=== PATIENT | female | born 1945 | race Caucasian/White ===

== ENCOUNTER 2016-07-08 09:24 | Inpatient (IN) | payer OTHER ==
[~2016-07-08] VITALS: Ht 160 cm; Wt 83.9 kg
[2016-07-08 09:24] VITALS: BP 127/70; PULSE 73; RESP 19; TEMP 97; O2SAT 94
--- NOTE | 2016-07-08 09:24 | NUR ---
BROUGHT BACK TO BED #6 AND TRIAGED. REPORT GIVEN TO DEMI
--- NOTE | 2016-07-08 09:50 | NUR ---
Assumed care of patient, introduced self.
[2016-07-08 10:20] LABS: BASOPHILS # (AUTO) 0.2 K/uL (0.0-0.2); BASOPHILS % (AUTO) 1.3 % (0.0-2.0); EOSINOPHILS % (AUTO) 0.1 % (0.0-4.0); HEMATOCRIT 35.3 % (36-48); LYMPHOCYTES # (AUTO) 0.8 K/uL (1.0-5.5); MEAN CORPUSCULAR HEMOGLOBIN 33 pg (27-31); MEAN CORPUSCULAR HGB CONC 34 % (32-36); MEAN CORPUSCULAR VOLUME 97 fL (79.0-98.0); MONOCYTES # (AUTO) 0.6 K/uL (0.0-1.0); MONOCYTES % (AUTO) 4.2 % (1.7-9.3); NEUTROPHILS # (AUTO) 12.1 K/uL (1.8-7.7); NEUTROPHILS % (AUTO) 88.4 % (40.0-70.0); PLATELET COUNT (AUTO) 301 K/uL (130-430); RED BLOOD CELL COUNT(AUTO) 3.63 MIL/uL (4.2-6.2); RED CELL DISTRIBUTION WIDTH 17.2 % (9.0-15.0); WHITE BLOOD COUNT (AUTO) 13.7 K/uL (4.8-10.8)
[2016-07-08 10:23] LABS: CALCIUM 9.3 mg/dL (8.4-11.0); CREATININE 1.3 mg/dL (0.55-1.30); POTASSIUM 5.1 mmol/L (3.5-5.1)
[2016-07-08 10:25] LABS: INR 1.1 (0.8-1.2); PROTHROMBIN TIME 11.7 SECS (9.5-12.5)
[2016-07-08 10:27] LABS: ALBUMIN 2.7 g/dL (3.4-4.8); TOTAL BILIRUBIN 1.2 mg/dL (0.0-1.0); TOTAL PROTEIN, SERUM 6.9 g/dL (6.4-8.3)
[2016-07-08] MEDS ORDERED: LEVOFLOXACIN 500 MG/D5W 100 ML IV ONE (11:00)
[2016-07-08] MEDS ORDERED: METH2.5T PO (11:33)
[2016-07-08] MEDS ORDERED: FOLI-43 PO (11:33)
[2016-07-08] MEDS ORDERED: SIMV10TA2 PO (11:33)
--- NOTE | 2016-07-08 11:33 | NUR ---
Medication reconciliation partially completed without accurate doses. As patient remembers names only. Family advised that we will need doses and will bring in meds.
--- NOTE | 2016-07-08 12:05 | NUR ---
Admission Note Received patient from ER with diagnosis of right pleural effusion. Initial Plan of Care discussed-patient verbalized understanding. Family at bedside. Oriented to room, call light, pain management and safety.
--- NOTE | 2016-07-08 12:13 | NUR ---
Patient will be admitted to care of MARCO ANTONIO. Admitted to unit. Will go to room . Belongings list completed. Summary report printed. Report given to .
--- NOTE | 2016-07-08 12:25 | NUR ---
Received patient, stable condition, alert and oriented x4. Visitor present. No shortness of breath noted, breathing unlabored. No complaints per patient. Fall, safety and aspiration precautions in place, bed in lowest position, call light with patient-education and teach back done. Will continue to monitor.
[2016-07-08 12:30] VITALS: BP 96/63; PULSE 104; RESP 20; TEMP 98.8; O2SAT 97
[2016-07-08] MEDS ORDERED: FURO-150 PO (12:30)
--- NOTE | 2016-07-08 13:10 | NUR ---
CONSULT PULMONOLOGY DR LERMA [phone] S/W YOLI EXCHANGE @ [id number]
[2016-07-08] MEDS ORDERED: ALBUTEROL SULFATE 0.083% 2.5 MG/3 ML VIAL.NEB INH PRN (13:30)
[2016-07-08] MEDS ORDERED: IPRATROPIUM BROM 0.5 MG/2.5 ML VIAL.NEB (ATROVENT) INH PRN (13:30)
--- NOTE | 2016-07-08 14:05 | NUR ---
Lactic Acid: Lab called, stated attempted to draw lactic acid but was unsuccessful. Stated new tech will come to attempt when patient is done with thoracentesis.
--- NOTE | 2016-07-08 14:20 | NUR ---
Thoracentesis: Complete. Patient tolerated well. 1L removed per tech.
--- NOTE | 2016-07-08 14:30 | NUR ---
Called Lab: To inform that patient is done with procedure, stated will draw soon.
[2016-07-08 16:00] VITALS: BP 109/52; PULSE 73; RESP 18; TEMP 98.5; O2SAT 95
[2016-07-08] MEDS: IPRATROPIUM BROM 0.5 MG/2.5 ML VIAL.NEB (ATROVENT) INH SCH ×3 (16:09→23:00)
[2016-07-08] MEDS: ALBUTEROL SULFATE 0.083% 2.5 MG/3 ML VIAL.NEB INH SCH ×3 (16:09→23:00)
[2016-07-08 16:41] VITALS: BP 96/63; PULSE 104
--- NOTE | 2016-07-08 16:41 | NUR ---
Note: Patient in stable condition, no distress noted.
--- NOTE | 2016-07-08 16:44 | NUR ---
CT Results: Dr. Garcia paged regarding CT results + to ask if would like cytology for thoracentesis fluid.
[2016-07-08 16:58] LABS: APPEARANCE,SPUN,BODY FLUID CLEAR (CLEAR); BF APPEARANCE UNSPUN SLIGHTLY HAZY (CLEAR); BODY FLUID SOURCE/ TYPE PLEURAL; SOURCE/TYPE ,BODY FLUID THORACENTESIS
[2016-07-08 16:59] LABS: BODY FLUID COLOR DARK YELLOW (LT YELLOW); BODY FLUID TOTAL VOLUME 1050 mL
--- NOTE | 2016-07-08 17:22 | NUR ---
MD call again: Paged Dr. Garcia again. Waiting for call back,
--- NOTE | 2016-07-08 17:25 | NUR ---
Dr. Garcia: Returned call, aware of CT results. Order received for cytology of pleural fluid.
--- NOTE | 2016-07-08 19:00 | NUR ---
Closing Note: Patient in stable condition, no distress noted. Thoracentesis site with band aid to right side of back clean dry intact. Care endorsed to night RN.
[2016-07-08 19:09] LABS: WBC, BODY FLUID 113 /uL
[2016-07-08 19:10] LABS: EOSINOPHIL, BODY FLUID 1 %; LYMPHOCYTES, BODY FLUID 20 %; MONOCYTES,BODY FLUID 57 %; NEUTROPHIL, BODY FLUID 22 %; RBC, BODY FLUID 1083 /uL
[2016-07-08 19:40] VITALS: BP 105/64; PULSE 109; RESP 15; TEMP 99.4; O2SAT 97
--- NOTE | 2016-07-08 19:50 | NUR ---
initial nursing notes: Patient is awake. Patient has edema on the LUE. Patient has a band-aid on the right side of her back from thoracentesis during the afternoon. Patient has an IV access on the RUE.
--- NOTE | 2016-07-08 21:50 | NUR ---
nursing rounds: Patient calmly resting in bed, watching television.
[2016-07-08 22:01] LABS: BODY FLUID GLUCOSE 109 mg/dL
--- NOTE | 2016-07-08 23:50 | NUR ---
nursing rounds: Patient asleep in bed. Call light within patient's reach.
[2016-07-09 00:44] VITALS: BP 106/54; PULSE 99; RESP 18; TEMP 97.8; O2SAT 93
--- NOTE | 2016-07-09 01:50 | NUR ---
nursing rounds: Patient sleeping in bed. Patient has no shortness of breath.
[2016-07-09] MEDS: ALBUTEROL SULFATE 0.083% 2.5 MG/3 ML VIAL.NEB INH SCH ×3 (03:00→14:26)
[2016-07-09] MEDS: IPRATROPIUM BROM 0.5 MG/2.5 ML VIAL.NEB (ATROVENT) INH SCH ×3 (03:00→14:27)
--- NOTE | 2016-07-09 03:50 | NUR ---
nursing rounds: Patient asleep in bed. Kept bed alarm on as preventive measures to avoid falls/injuries.
[2016-07-09 04:00] VITALS: BP 102/66; PULSE 95; RESP 17; TEMP 98.8; O2SAT 97
--- NOTE | 2016-07-09 04:00 | NUR ---
CONSULT: CONSULT CALLED FOR DR. LERMA I SPOKE WITH JOSÉ LUIS DANIEL REASON FOR CONSULT: PLEURAL EFFUSION NUMBER I CALLED [phone]
--- NOTE | 2016-07-09 04:33 | NUR ---
CONSULT: CONSULT CALLED FOR DR. MOSER I SPOKE WITH FRANKIE EXCHANGE NUMBER I CALLED [phone]
--- NOTE | 2016-07-09 05:50 | NUR ---
nursing rounds: Patient calmly resting in bed. Patient denies of having pain.
--- NOTE | 2016-07-09 07:49 | NUR ---
closing nursing notes: Patient is awake, alert and oriented X 4. Patient is in no acute respiratory distress. 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 Provided nursing report to incoming morning shift nurse, SHAYY Coelho, at patient's bedside.
[2016-07-09] MEDS ORDERED: LEVOFLOXACIN 500 MG/D5W 100 ML IV SCH (08:00)
[2016-07-09 08:15] VITALS: BP 111/58; PULSE 105; RESP 17; TEMP 96.4; O2SAT 98
--- NOTE | 2016-07-09 09:09 | NUR ---
Nutrition Update Kaiden Scale 16 noted. Pt admitted for pleural effusion. Diet: 2 gm Na BMI: 32.8 kg/m2 RD to follow per nutrition care standards.
--- NOTE | 2016-07-09 10:21 | NUR ---
ROUNDS Patient resting at this time, denies SOB and pain. IV site patent and intact. Safety and fall precautions in place, call light within reach. Will continue to monitor.
--- NOTE | 2016-07-09 11:57 | NUR ---
Patient was assisted to bathroom, had syncopal episode. Patient become unresponsive pale and diaphoretic. Rapid response was called. Patient was assisted to chair where she then became responsive alert and awake. Patient stated she got "dizzy". Patient was assisted to bed. VSS. Oxygen applied NC 5L at this time. Pulse ox reading 80% at this time. Dr. Hernandez was paged. Spoke with Dr. Garcia, new orders noted. Patient remains AOx4. At this time. Family at bedside. Will continue to monitor. Safety and fall precautions in place, call light within reach.
[2016-07-09 12:20] LABS: ABG TOTAL HEMOGLOBIN 12.8 G/dL (12.0-18.0); BLOOD GAS BASE EXCESS -5.6 mmol/L (-3.0-3.0); BLOOD GAS PH 7.363 (7.350-7.450)
[2016-07-09 12:21] LABS: BLOOD GAS COHb% 0.7 % (0.5-1.5); BLOOD O2Hb% 63.8 % (94.0-97.0)
--- NOTE | 2016-07-09 12:24 | NUR ---
Dr. Mojica at bedside, patient to be transferred to ICU. Dr. Radha marquez.
--- NOTE | 2016-07-09 12:24 | NUR ---
RT NOTE RESPONDED TO RN CALL DUE TO PT HAVNG SOB AND LABORED BREATHING WITH SAT OF 66% RECORDED ON PULSE OX. ABG DONE PER MD ORDER AT BEDSIDE. MD REQUESTED PT TO BE PLACED ON BIPAP PER ABG RESULT OF LOW O2 AND PLANS ON TRANSFERRING PT TO ICU TO AT THIS TIME
--- NOTE | 2016-07-09 12:36 | NUR ---
TO ICU. RECEIVED PT ON O2 VIA NON REBREATHER MASK, AT 10 L PER MIN, DR MOSER AT BEDSIDE, PT AWAKE, O2 SAT 84%, O2 SWITCHED TO BIPAP BY R.T., WILL CONTINUE TO MONITOR.
[2016-07-09 12:37] VITALS: BP 133/83; PULSE 136; RESP 44; O2SAT 84
--- NOTE | 2016-07-09 12:40 | NUR ---
ICU PT IS AWAKE, SOB, DIAPHORETIC. RT AT BEDSIDE, DR. MOSER AT BEDSIDE. DR. MOSER SPOKE TO FAMILY ABOUT INTUBATION, THEY AGREED.
--- NOTE | 2016-07-09 12:50 | NUR ---
RT NOTE PT INTUBATED AT THIS TIME WITH A SIZE 7.5 ETT/24CM AT LIP. COLOR CHANGE NOTIFIED ON CALORIMETRIC DETECTOR AND BILATERAL BREATHSOUND AUSCULTATED, PT BAGGED WITH 100% O2 VIA AMBU BAG, ETT SECURED, PLACED ON AC 18 500 +5 100% VENNT SETNGS PER MD ORDER.
--- NOTE | 2016-07-09 12:50 | NUR ---
HCP/PA: Called JESSA Cm made her aware of discharge home.
[2016-07-09 12:58] VITALS: BP 133/96; PULSE 133; RESP 17; O2SAT 71
[2016-07-09 13:00] VITALS: BP 108/56; PULSE 137; RESP 41; TEMP 96.9; O2SAT 83
[2016-07-09] MEDS ORDERED: PROPOFOL DRIP 100 ML IV PRN (13:00)
[2016-07-09] MEDS ORDERED: ENOXAPARIN SODIUM 80 MG/0.8 ML SYRINGE SUBCUT ONE (13:00)
[2016-07-09] MEDS ORDERED: MORPHINE 2 MG/ML INJ. SYRINGE IVP PRN (13:00)
[2016-07-09] MEDS ORDERED: LORazepam 2 MG/ML VIAL IVP PRN (13:00)
[2016-07-09] MEDS ORDERED: *LOVENOX 1MG/KG Q12H/PHARMACY XX ONE (13:00)
--- NOTE | 2016-07-09 13:07 | NUR ---
O2. GLASS PRODUCTION MACHINE OPERATOR ON SINUS TACH, VENT SETTING AC 18, TV 500, PEEP 5, PT DROWSY.
[2016-07-09] MEDS ORDERED: 0.45% NACL 1,000 ML IV SCH (13:15)
--- NOTE | 2016-07-09 13:45 | NUR ---
CODE. CARDIAC RATE WENT DOWN FROM 70'S TO 30'S, SKIN PALE IN COLOR, PULSES UNDETECTED, THRU DOPPLER AND MANUAL CHECK, CHEST COMPRESSION BEGUN, CODE BLUE ANNOUNCED. PT'S FAMILY AROUND. STAFF DISCUSSED TO FAMILY WHAT'S BEING DONE.
--- NOTE | 2016-07-09 13:45 | NUR ---
RT NOTES Responded to code blue, CPR started, took pt. off the vent to bag with 100% O2 via ambubag to ETT, by 2nd RT. Placed pt back on the vent with the same settings once pulse was noted and ER MD confirmed.
--- NOTE | 2016-07-09 13:49 | NUR ---
EKG. PT'S HEART RATE SEEN 150, CONTINUE TO MONITOR.
--- NOTE | 2016-07-09 13:50 | NUR ---
consult for dr. gardiner called spoke to addie dialed [phone]
--- NOTE | 2016-07-09 13:50 | NUR ---
CODE SUCCESSFUL HEART RATE SINUS TACH, PULSES PRESENT AFTER CODE BLUE. FAMILY MEMBERS CAME TO BEDSIDE. DR. OMSER SPOKE TO FAMILY.
--- NOTE | 2016-07-09 13:55 | NUR ---
FAMILY AT BEDSIDE FAMILY ASKED TO SPEAK TO DR. MOSER AGAIN, STATES THAT THEY DO NOT WISH THAT SHE BE CODED AGAIN. DR. MOSER MADE PT A DNR.
--- NOTE | 2016-07-09 14:00 | NUR ---
FAMILY FAMILY AT BEDSIDE. HAS BEEN BRADYCARDIC, THEN BECAME ASYSTOLE. AUTOMATIC CIGAR WRAPPER TENDER SPOKE TO FAMILY.
--- NOTE | 2016-07-09 14:00 | NUR ---
EKG. HEAR RATE WENT TO 47, CHECKED PULSES, RHYTHM PEA, PT'S AT BEDSIDE, DECIDED NOT TO CONTINUE WITH ANOTHER CODE IF HEART STOPS BEATING, DR MOSER IN THE STATION AND MADE AWARE OF FAMILY'S DECISION.
--- NOTE | 2016-07-09 14:28 | NUR ---
. DR FITZPATRICK OF [facility] CAME IN AND PRONOUNCED THE .
[2016-07-09] MEDS ORDERED: EPINEPHrine JECT 1 MG/10 ML SYR IVP ONE (15:00)
[2016-07-09] MEDS ORDERED: NS 1000 ML BAG IV ONE (15:00)
[2016-07-09] MEDS ORDERED: ETOMIDATE 20 MG/ 10 ML VIAL (AMIDATE) IVP ONE (15:00)
[2016-07-09] MEDS ORDERED: ATROPINE SULFATE 1 MG/10 ML SYRINGE IVP ONE (15:00)
--- NOTE | 2016-07-09 15:00 | NUR ---
FAMILY , BRII, HAS ARRANGEMENTS WITH [facility]. STATES HE SPOKE TO SOMEONE THERE.
--- NOTE | 2016-07-09 15:06 | NUR ---
Social Service Note: PLATFORM CONSULTANT met with pt's , sister in law, and family in ICU waiting room. Emotional support provided. PLATFORM CONSULTANT will remain available for support.
--- NOTE | 2016-07-09 18:05 | NUR ---
MORTUARY MORTUARY HERE TO POWER PRESS OPERATOR THE BODY.
[2016-07-09] MEDS ORDERED: LACTOBACILLUS RHAMNOSUS GG 1 CAP CAPSULE PO SCH (21:00)
[2016-07-09] MEDS ORDERED: ENOXAPARIN SODIUM 80 MG/0.8 ML SYRINGE SUBCUT SCH (21:00)
== END 2016-07-09 14:28 | disposition expired | DRG 208 ==
LOC: SED 09:24 → STU 11:37 → SIC 07-09 12:57
PROVIDERS: ADMIT Internal Medicine Hospice and Palliative Medicine; ATTEND Internal Medicine Hospice and Palliative Medicine
PROC: 0W993ZZ Drainage of Right Pleural Cavity, Percutaneous Approach (ICD-10-PCS; 2016-07-08)
PROC: 0BH17EZ Insertion of Endotracheal Airway into Trachea, Via Natural or Artificial Opening (ICD-10-PCS; principal; 2016-07-09)
PROC: 5A1935Z Respiratory Ventilation, Less than 24 Consecutive Hours (ICD-10-PCS; 2016-07-09)
DX: C78.00 Secondary malignant neoplasm of unspecified lung (principal); J96.01 Acute respiratory failure with hypoxia; J91.0 Malignant pleural effusion; C78.7 Secondary malignant neoplasm of liver and intrahepatic bile duct; L40.9 Psoriasis, unspecified; N18.3 Chronic kidney disease, stage 3 (moderate); K76.9 Liver disease, unspecified; I89.0 Lymphedema, not elsewhere classified; I12.9 Hypertensive chronic kidney disease with stage 1 through stage 4 chronic kidney disease, or unspecified chronic kidney disease; I46.9 Cardiac arrest, cause unspecified; R16.0 Hepatomegaly, not elsewhere classified; Z85.3 Personal history of malignant neoplasm of breast; Z85.42 Personal history of malignant neoplasm of other parts of uterus; Z90.710 Acquired absence of both cervix and uterus; Z90.722 Acquired absence of ovaries, bilateral
CPT/HCPCS: 32555; 36415; 71010; 71250-TC; 80053; 82550-TC; 82803-TC; 82947-TC; 82962; 83605; 83880; 84157-TC; 84484; 85025; 85610-TC; 85730-TC; 87040-TC; 88108; 88305; 88313; 88341; 88342; 88361; 89051-TC; 89060-TC; 93005; 93306; 94002; 94640; 94660; 94760; 99285; C1729; J0171; J0461; J1650; J1956; J2060; J2704; J3490; J7030; J7050